=== PATIENT | male | born 1985 | race Caucasian/White ===

== ENCOUNTER 2017-08-19 07:12 | Emergency (ER) | payer OTHER ==
[~2017-08-19] VITALS: Ht 190.5 cm; Wt 99.8 kg
[~2017-08-19 07:12] MED LIST: BACTRIM DS 8001 TAB PO; BACTROBAN OINT.1 BOX NASB; CLARITIN10 MG PO; ESCITALOPRAM OX20 MG PO; KEFLEX250 M1 PO; MOTRIN 600 MG600 MG PO; PERCOCET 325 MG1 TA2 PO; PERMETHRIN5% N; PREDNICOT20 MG PO; PREDNISONE 20MG20 MG PO; ZOVIRAX800 MG PO
[2017-08-19 07:14] VITALS: BP 127/79
[2017-08-19 07:48] LABS: ABSOLUTE BASOPHIL COUNT 0 /CUMM (0.0-0.2); ABSOLUTE EOSINOPHIL COUNT 0 /CUMM (0.0-0.7); ABSOLUTE GRANULOCYTE CT 13.3 /CUMM (1.4-6.5); ABSOLUTE LYMPH COUNT 1.4 /CUMM (1.2-3.4); ABSOLUTE MONOCYTE COUNT 1.3 /CUMM (0.10-0.60); BASOPHIL % 0.1 % (0.0-2.0); EOSINOPHIL % 0.3 % (0-5); GRANULOCYTE % 83.1 % (42.2-75.2); HEMATOCRIT 37.6 % (42-52); MEAN CORPUSCULAR HGB 32.3 PG (27.0-31.0); MEAN CORPUSCULAR HGB CONC 34.5 G/DL (33.0-37.0); MEAN CORPUSCULAR VOLUME 93.3 FL (80.0-94.0); PLATELET COUNT 285 /CUMM (130-400); RBC DISTRIBUTION WIDTH 12.4 % (11.5-14.5); RED BLOOD CELL CT 4.03 /CUMM (4.70-6.10); WHITE BLOOD CELL COUNT 16.1 /CUMM (4.8-10.8)
--- NOTE | 2017-08-19 08:08 | ED ANKLE/FOOT INJURY COMPLAINT ---
History of Present Illness General Chief Complaint: Lower Extremity Problems Stated Complaint: SWOLLEN FEET (UNKNOWN INJURY) Source: patient, old records Exam Limitations: no limitations Vital Signs & Intake/Output Vital Signs & Intake/Output Vital Signs Date Time Temp Pulse Resp B/P B/P Pulse O2 O2 Flow FiO2 Mean Ox Delivery Rate 08/19 0714 98.6 102 16 127/79 98 Room Air Allergies Coded Allergies: No Known Allergies (08/24/15) Reconcile Medications Escitalopram Oxalate 20 MG TABLET 1 TAB PO DAILY MENTAL HEALTH (Reported) Triage Note: 32 Y/O MALE C/O SWELLING AND REDNESS TO OUTER ASPECT R FOOT. STATES HE REMEMBERS SCRATCHING AREA BEFORE BED 2 NIGHTS AGO, WOKE WITH REDNESS AND SWELLING. FATHER WITH HX GOUT BUT PT DENIES PERSONAL HX OF SAME. REDNESS/SWELLING NOTED. AFEBRILE Triage Nurses Notes Reviewed? yes Occurred: 2 days Duration: day(s):, constant, continues in ED, getting worse Timing: recent history Severity: moderate, severe Pain/Injury Location: Bilateral: Foot, Ankle. Method of Injury: unknown Modifying Factors: Improves With: rest. Worsens With: movement. Associated Symptoms: swelling, redness, stiffness HPI: 2 days prior to admission patient noted increasing swelling redness to bilateral lateral ankles and feet right greater than left worse with ambulation pressure. He denies fever chills nausea vomiting diarrhea abdominal pain chest pain shortness breath headache dysuria bleeding injury. Past History Travel History Traveled to [place] past 21 day No Medical History Any Pertinent Medical History? none Neurological: NONE EENT: NONE Cardiovascular: NONE Respiratory: NONE Gastrointestinal: NONE Hepatic: NONE Renal: NONE Musculoskeletal: NONE Psychiatric: NONE Endocrine: NONE Blood Disorders: NONE Cancer(s): NONE Tetanus Vaccine: 06/29/12 Surgical History Surgical History: non-contributory Psychosocial History What is your primary language Austrian Tobacco Use: Current Daily Use Daily Tobacco Use Amount/Type: => 5 Cigarettes daily Family History Hx Contributory? Yes (Father with gout) Review of Systems Review of Systems Constitutional: Reports: no symptoms. EENTM: Reports: no symptoms. Respiratory: Reports: no symptoms. Cardiovascular: Reports: no symptoms. GI: Reports: no symptoms. Genitourinary: Reports: no symptoms. Musculoskeletal: Reports: see HPI, joint pain, joint swelling. Skin: Reports: cysts, rash. Neurological/Psychological: Reports: no symptoms. Hematologic/Endocrine: Reports: no symptoms. Immunologic/Allergic: Reports: no symptoms. All Other Systems: Reviewed and Negative Physical Exam Physical Exam General Appearance: well developed/nourished, mild distress Head: atraumatic Eyes: Bilateral: PERRL, EOMI. Ears, Nose, Throat: normal pharynx, normal ENT inspection, hearing grossly normal Neck: normal inspection, supple Cardiovascular/Respiratory: regular rate/rhythm Back: normal inspection Leg/Knee/Thigh Left: normal range of motion, normal inspection Leg/Knee/Thigh Right: normal range of motion, normal inspection Ankle Left: normal range of motion, erythema, pain, soft tissue tenderness, swelling Ankle Right: erythema, pain, soft tissue tenderness, swelling, tenderness, limited range of motion Foot Left: pain, soft tissue tenderness, swelling Foot Right: erythema, limited range of motion, pain, soft tissue tenderness, swelling Reflexes: 2+: knee (R), knee (L). Neuro/Vascular: normal motor function, normal sensation Tendon: normal tendon function Psychiatric: awake, alert, oriented x 3 Skin: intact, normal color, warm/dry Progress Differential Diagnosis: cellulitis, gout Plan of Care: Orders Procedure Date/time Status URIC ACID 08/19 729 Complete COMPREHENSIVE METABOLIC PANEL 08/19 729 Complete CBC WITHOUT DIFFERENTIAL 08/19 729 Complete Laboratory Tests 08/19/17 0738: Anion Gap 10, Estimated GFR > 60, BUN/Creatinine Ratio 15.4, Glucose 109 H, Uric Acid 4.9, Calcium 9.1, Total Bilirubin 0.8, AST 23, ALT 22, Alkaline Phosphatase 50, Total Protein 6.6, Albumin 4.0, Globulin 2.6, Albumin/Globulin Ratio 1.5, CBC w Diff MAN DIFF ORDERED, RBC 4.03 L, MCV 93.3, MCH 32.3 H, MCHC 34.5, RDW 12.4, MPV 8.0, Gran % 83.1 H, Lymphocytes % 8.7 L, Monocytes % 7.8, Eosinophils % 0.3, Basophils % 0.1, Absolute Granulocytes 13.3 H, Segmented Neutrophils 89 H, Band Neutrophils 1, Absolute Lymphocytes 1.4, Lymphocytes 6 L, Monocytes 4, Absolute Monocytes 1.3 H, Absolute Eosinophils 0, Absolute Basophils 0, Platelet Estimate VERIFIED BY SMEAR, Normocytic RBCs VERIFIED, Normochromic RBCs VERIFIED Departure Departure Time of Disposition: 832 Disposition: HOME OR SELF CARE Condition: Stable Clinical Impression Primary Impression: Cellulitis Qualifiers: Site of cellulitis: extremity Site of cellulitis of extremity: lower extremity Laterality: unspecified laterality Qualified Code: L03.119 - Cellulitis of unspecified part of limb Secondary Impressions: Gout Qualifiers: Gout site: foot Gout etiology: unspecified cause Chronicity: acute Laterality: unspecified laterality Qualified Code: M10.9 - Gout, unspecified Referrals: Patient Has No Primary Care Dr (PCP/Family) Departure Forms: Customer Survey General Discharge Information Prescriptions: Current Visit Scripts Colchicine (Colcrys) 1 TAB PO SEE ADMIN CRITERIA #15 TAB 1 tab Q1 hour for 7 hours until pain goes away or you develop n/v/d, abdominal pain Prednisone 1 TAB PO BID #10 TAB Cephalexin (Keflex) 1 CAP PO TID #30 CAP Indomethacin 1 CAP PO TID PRN pain #50 CAP with food Tramadol HCl (Ultram) 1-2 TAB PO Q6P PRN severe pain #30 TAB
[2017-08-19] MEDS ORDERED: COLCRYS0.6 M1 PO (08:37)
[2017-08-19] MEDS ORDERED: ULTRAM50 M1 PO (08:37)
[2017-08-19] MEDS ORDERED: INDOMETHACIN50 M1 PO (08:37)
[2017-08-19] MEDS ORDERED: PREDNISONE20 M1 PO (08:37)
[2017-08-19] MEDS ORDERED: KEFLEX500 M1 PO (08:37)
== END 2017-08-19 08:46 ==
LOC: ERH 07:12
PROVIDERS: Emergency Medicine
DX: L03.115 Cellulitis of right lower limb (principal); L03.116 Cellulitis of left lower limb; M10.9 Gout, unspecified